=== PATIENT | female | born 1990 | race Asian ===

== ENCOUNTER 2016-08-17 19:28 | Emergency (ER) | payer BC ==
[~2016-08-17] VITALS: Ht 175.3 cm; Wt 89.0 kg
[2016-08-17 20:23] VITALS: BP 146/82; TEMP 98.3
== END 2016-08-17 20:26 | disposition home or self-care (01) ==
LOC: ED 19:28
DX: M79.1 Myalgia (principal)
CPT/HCPCS: 96372; 99282; J1885

== ENCOUNTER 2018-11-07 20:23 | Outpatient (CLI) | payer OTHER | END 2018-11-07 22:49 | disposition home or self-care (01) | LOC: RAD 20:23 | DX: R76.11 Nonspecific reaction to tuberculin skin test without active tuberculosis (principal) ==